=== PATIENT | female | born 1980 | race Caucasian/White ===

== ENCOUNTER 2020-09-19 17:31 | Emergency (ER) | payer SELFPAY ==
[~2020-09-19] VITALS: Ht 165.1 cm; Wt 65.9 kg
--- NOTE | 2020-09-19 17:57 | PHYS DOC ---
Past History Past Medical History: No Pertinent History, Anxiety, Bronchitis, UTI Past Surgical History: Tubal ligation Smoking: Cigarettes Alcohol Use: Occasionally General Adult EDM: Chief Complaint: CHEST PAIN HPI: HPI: ".. I ve been having chest discomfort.. and my heart feels like it going to beat out of my chest...." Patient is a 40 year old female who presents with above hx and complaints of tachycardia and chest discomfort. Patient advises she has been under increased work stresses and has been drinking more alcohol than normally. Patient denies any excessive caffeine use. Patient denies any illicit drug use. Patient has had episodes of tachycardia in the past. Patient denies any recent travel. Denies any trauma no specific ill contacts. No history of fever or chills. No history immunosuppression. Patient has started smoking again. Patient's chest discomfort has been somewhat constant the last 24 hours. Comfort is localized and left shoulder. Patient normally follows with Dr. Avendano. Review of Systems: Review of Systems: Constitutional: Denies fever or chills Eyes: Denies change in visual acuity HENT: Denies nasal congestion or sore throat Respiratory: Denies cough or shortness of breath Cardiovascular: Complains of chest discomfort and tachycardia GI: Denies abdominal pain, nausea, vomiting, bloody stools or diarrhea : Denies dysuria Musculoskeletal: Denies back pain or joint pain Integument: Denies rash Neurologic: Denies headache, focal weakness or sensory changes Endocrine: Denies polyuria or polydipsia Lymphatic: Denies swollen glands Psychiatric: Denies depression or anxiety Family History: Family History: Noncontributory to presentation Current Medications: Current Meds: See nursing for home meds Allergies: Allergies: No known drug allergies Physical Exam: PE: Constitutional: Moderate acute distress, non-toxic appearance. [] HENT: Normocephalic, atraumatic, bilateral external ears normal, oropharynx moist, no oral exudates, nose normal. [] Eyes: PERRLA, EOMI, conjunctiva normal, no discharge. [] Neck: Normal range of motion, no tenderness, supple, no stridor. [] Cardiovascular: Tachycardia heart rate regular rhythm, no murmur []. Bedside monitor shows a sinus tachycardia 130s to 140s Lungs & Thorax: Bilateral breath sounds are apex with few scattered wheezes on auscultation [] Abdomen: Bowel sounds decreased , soft, no tenderness, no masses, no pulsatile masses. Old surgery scars Skin: Warm, dry, no erythema, no rash. [] Back: No tenderness, no CVA tenderness. [] Extremities: No tenderness, no cyanosis, no clubbing, ROM intact, no edema. No cording appreciated in lower legs. Neurologic: Alert and oriented X 3, normal motor function, normal sensory function, no focal deficits noted. [] Psychologic: Affect anxious, judgement normal, mood normal. [] Current Patient Data: Vital Signs: Vital Signs Date Time Temp Pulse Resp B/P (MAP) Pulse Ox O2 Delivery O2 Flow Rate FiO2 09/19/20 17:47 98.2 119 18 135/93 (107) 100 Room Air EKG: EKG: My interpretation EKG shows a sinus tachycardia 133 bpm. Some bimodal P waves. No findings acute STEMI of contralateral changes. [] EKG at 1748 hrs. My interpretation EKG #2 shows a sinus rhythm with no acute morphology. At 2115 hrs. Radiology/Procedures: Radiology/Procedures: [[address] [address] IMAGING REPORT Signed PATIENT: MATTY MAGALLON ACCOUNT: [id number] : 1980 LOCATION: ER AGE: 40 SEX: F EXAM STATUS: REG ER ORD. PHYSICIAN: GREGORIO STONE MD REASON: OMNI 350,90ML IV. CHEST PAIN PROCEDURE: CT ANGIOGRAPHY CHEST Exam: CT of chest with contrast INDICATION: Chest pain TECHNIQUE: Sequential axial images through the chest obtained following the administration of 99 mL of Isovue-370 IV contrast. Sagittal and coronal reformatted images were reconstructed from the axial data and reviewed. 3-D reformatted images were reconstructed from the axial data and reviewed. Exposure: One or more of the following in the visualized dose reduction techniques were utilized for this examination: 1. Automated exposure control 2. Adjustment of the MA and/or KV according to patient size 3. Use of iterative of reconstructive technique Comparisons: Chest x-ray same day FINDINGS: Visualized portions of the thyroid are unremarkable. No enlarged mediastinal lymph nodes. Heart size is normal. No pericardial effusion. Thoracic aorta has a normal course and caliber. Pulmonary artery is not enlarged. No pulmonary embolus identified within the main, lobar or segmental pulmonary arteries Airways are patent. No consolidation or pneumothorax. No suspicious lung nodules are identified. No pleural effusion or thickening. Diffuse hepatic steatosis. No suspicious osseous lesions or acute fractures. IMPRESSION: No pulmonary embolus identified within the main, lobar or segmental pulmonary arteries. Diffuse hepatic steatosis. Electronically signed by: Cisco Brandt MD (09/19/2020 9:48 PM) [facility] DICTATED AND SIGNED BY: CISCO BRANDT MD DATE: 09/19/202140 CC: GREGORIO STONE MD; ORLY AVENDANO ~MTH0 0 ][address] [place] [address] IMAGING REPORT Signed PATIENT: MATTY MAGALLNO ACCOUNT: [id number] : 1980 LOCATION: ER AGE: 40 SEX: F EXAM STATUS: REG ER ORD. PHYSICIAN: GREGORIO STONE MD REASON: cp PROCEDURE: PORTABLE CHEST 1V XR CHEST 1V History: Reason: cp / Spl. Instructions: / History: Comparison: None. Findings: No consolidation or pleural effusion. Normal heart size. No pneumothorax. Impression: 1. No acute cardiopulmonary process. Electronically signed by: Himanshu Moss DO (09/19/2020 6:29 PM) [facility] DICTATED AND SIGNED BY: HIMANSHU MOSS DO DATE: 09/19/201827 CC: GREGORIO STONE MD; ORLY AVENDANO ~MTH0 0 Heart Score: C/O Chest Pain: Yes HEART Score for Chest Pain: HEART Score for Chest Pain Response (Comments) Value History Moderately Suspicious 1 ECG Nonspecific Repolarizatio 1 Age < 45 0 Risk Factors 1 or 2 Risk Factors 1 Troponin < Normal Limit 0 Total 3 Risk Factors: Risk Factors: DM, Current or recent (<one month) smoker, HTN, HLP, family history of CAD, obesity. Risk Scores: Score 0 - 3: 2.5% MACE over next 6 weeks - Discharge Home Score 4 - 6: 20.3% MACE over next 6 weeks - Admit for Clinical Observation Score 7 - 10: 72.7% MACE over next 6 weeks - Early Invasive Strategies Course & Med Decision Making: Course & Med Decision Making Pertinent Labs and Imaging studies reviewed. (See chart for details) At time of discharge pt. symptoms had resolved. Patient avoid further alcohol use. Patient push fluids and fruit juices. Brady holguin encouraged to consider alcohol rehab. Patient encouraged to not smoke. Must follow-up. patient return if any concerns. Patient take a daily Bactrim twice a day. Follow-up urine culture. Follow up with Dr Avendano, and consider outpatient stress testing. Impression: 1. Chest Pain 2. Tachycardia 3. Elevate AST 269/ALT 225 4. Alcohol Abuse= 120 5. Tobacco Use 6. Drug Screen + Marijuana 7. Thrombocytopenia= 101 8. Urinary tract infection [] Dragon Disclaimer: Di Disclaimer: This electronic medical record was generated, in whole or in part, using a voice recognition dictation system. Departure Departure: Scripts Sulfamethoxazole/Trimethoprim (BACTRIM DS TABLET) 1 Each Tablet 1 TAB PO BID for uti for 7 Days, #14 TAB 0 Refills Prov: GREGORIO STONE MD 09/19/20 GREGORIO STONE MD September 19, 2020 17:57
[2020-09-19] MEDS ORDERED: ASPIRIN CHEWABLE 81 MG TABLET. PO ONE (18:15)
[2020-09-19] MEDS ORDERED: IV RINGERS SOLUTION,LACTATED 1,000 ML IV SCH (18:15)
--- NOTE | 2020-09-19 18:31 | RAD ---
XR CHEST 1V History: Reason: cp / Spl. Instructions: / History: Comparison: None. Findings: No consolidation or pleural effusion. Normal heart size. No pneumothorax. Impression: 1. No acute cardiopulmonary process. Electronically signed by: Himanshu Fong DO (09/19/2020 6:29 PM) [facility]
--- NOTE | 2020-09-19 18:45 | EKG ---
[address] [address] Test Date: 2020-09-19 Test Time: 17:48:02 Pat Name: MATTY MAGALLON Department: Room: Gender: F Director [employer]: MARYAN : 1980 Requested By: GREGORIO STONE Order Number: [id number] Reading MD: Measurements Intervals [place] Rate: 133 P: 47 NH: 134 QRS: 30 QRSD: 70 T: 22 QT: 290 QTc: 433 Interpretive Statements SINUS TACHYCARDIA LEFT ATRIAL ABNORMALITY ABNORMAL ECG RI6.02 No previous ECG available for comparison
[2020-09-19 18:46] LABS: BASO # 0.1 x10^3/uL (0.0-0.2); BASO % 1 % (0-3); EOS # 0.1 x10^3/uL (0.0-0.7); EOS % 2 % (0-3); HEMATOCRIT 40.5 % (36.0-47.0); LYMPH # 2.4 x10^3/uL (1.0-4.8); LYMPH % 39 % (24-48); MEAN CORPUSCULAR HEMOGLOBIN 35 pg (25-35); MEAN CORPUSCULAR HGB CONC 34 g/dL (31-37); MEAN CORPUSCULAR VOLUME 101 fL (79-100); MONO % 17 % (0-9); NEUT # 2.5 x10^3uL (1.8-7.7); NEUT % 41 % (31-73); PLATELET COUNT 291 x10^3/uL (140-400); RED BLOOD COUNT 4.02 x10^6/uL (3.50-5.40); RED CELL DISTRIBUTION WIDTH 13.7 % (11.5-14.5); WHITE BLOOD COUNT 6.2 x10^3/uL (4.0-11.0)
[2020-09-19 18:50] LABS: CALCIUM 8.7 mg/dL (8.5-10.1); CREATININE 0.8 mg/dL (0.6-1.0); GFR 79.9; POTASSIUM 3.6 mmol/L (3.5-5.1)
[2020-09-19 19:02] LABS: ALBUMIN 4.1 g/dL (3.4-5.0); DIRECT BILIRUBIN 0.2 mg/dL (0.0-0.2); MAGNESIUM 2.1 mg/dL (1.8-2.4); TOTAL BILIRUBIN 0.6 mg/dL (0.2-1.0)
[2020-09-19 20:36] LABS: BARBITURATES NEG (NEG); BENZODIAZEPINES NEG (NEG); CANNABINOIDS POS (NEG); COCAINE NEG (NEG); METHADONE NEG (NEG); OPIATES NEG (NEG); PHENCYCLIDINE NEG (NEG)
[2020-09-19 20:40] LABS: AMPHETAMINE/METHAMPHETAMINE NEG (NEG)
[2020-09-19 20:42] LABS: BILIRUBIN,URINE NEG (NEG); CLARITY,URINE CLOUDY; COLOR,URINE YELLOW; GLUCOSE,URINE NEG (NEG)
[2020-09-19 20:43] LABS: BACTERIA,URINE MANY /HPF (0-FEW); NITRITE,URINE POS (NEG); SQUAMOUS EPITHELIAL CELL,UR OCC /LPF; UROBILINOGEN,URINE 0.2 mg/dL (0.2 mg/dL); WBC,URINE OCC /HPF (0-4)
[2020-09-19] MEDS ORDERED: IOHEXOL 350 MG/ML 100 ML VIAL. IV ONE (21:15)
[2020-09-19] MEDS ORDERED: APIXABAN 5 MG TABLET. PO SCH (21:15)
--- NOTE | 2020-09-19 21:38 | EKG ---
[address] [address] Test Date: 2020-09-19 Test Time: 21:15:44 Pat Name: MATTY MAGALLON Department: Room: Gender: F [employer] Worker: : 1980 Requested By: GREGORIO STONE Order Number: [id number] Reading MD: Measurements Intervals [place] Rate: 88 P: 24 GA: 150 QRS: 33 QRSD: 76 T: 28 QT: 350 QTc: 427 Interpretive Statements SINUS RHYTHM OTHERWISE NORMAL ECG RI6.02 No previous ECG available for comparison
--- NOTE | 2020-09-19 21:50 | RAD ---
Exam: CT of chest with contrast INDICATION: Chest pain TECHNIQUE: Sequential axial images through the chest obtained following the administration of 99 mL o f Isovue-370 IV contrast. Sagittal and coronal reformatted images were reconstructed from the axial d shira and reviewed. 3-D reformatted images were reconstructed from the axial data and reviewed. Exposure: One or more of the following in the visualized dose reduction techniques were utilized for this examination: 1. Automated exposure control 2. Adjustment of the MA and/or KV according to patient size 3. Use of iterative of reconstructive technique Comparisons: Chest x-ray same day FINDINGS: Visualized portions of the thyroid are unremarkable. No enlarged mediastinal lymph nodes. Heart size is normal. No pericardial effusion. Thoracic aorta has a normal course and caliber. Pulmon ranulfo artery is not enlarged. No pulmonary embolus identified within the main, lobar or segmental pulmo nary arteries Airways are patent. No consolidation or pneumothorax. No suspicious lung nodules are identified. No pleural effusion or thickening. Diffuse hepatic steatosis. No suspicious osseous lesions or acute fractures. IMPRESSION: No pulmonary embolus identified within the main, lobar or segmental pulmonary arteries. Diffuse hepatic steatosis. Electronically signed by: Cisco Painter MD (09/19/2020 9:48 PM) [facility]
[2020-09-19] MEDS ORDERED: SULF1TAB24 PO (23:37)
[2020-09-19] MEDS ORDERED: SMZ/TMP 800/160MG TABLET. PO ONE (23:45)
[2020-09-20] VITALS: BP 118/73
[2020-09-20] MEDS ORDERED: LABETALOL HCL 100 MG TABLET PO SCH (09:00)
== END 2020-09-20 00:05 | disposition home or self-care (01) ==
LOC: ER 17:31
DX: R07.89 Other chest pain (principal); N39.0 Urinary tract infection, site not specified; R00.0 Tachycardia, unspecified; F10.10 Alcohol abuse, uncomplicated; F12.10 Cannabis abuse, uncomplicated; D69.6 Thrombocytopenia, unspecified; F17.210 Nicotine dependence, cigarettes, uncomplicated; Z98.51 Tubal ligation status; Y90.6 Blood alcohol level of 120-199 mg/100 ml
CPT/HCPCS: 36415; 71045; 71275; 80048; 80076; 80307; 81001; 82550; 83690; 83735; 83880; 84443; 84484; 84702; 85025; 87086; 93005; 96360; 96361; 99285; G0480; J7120; Q9967